=== PATIENT | male | born 1975 | race African-American/Black ===

== ENCOUNTER 2017-06-15 04:42 | Emergency (ER) | payer OTHER ==
[~2017-06-15] VITALS: Ht 190.5 cm; Wt 127.3 kg
[~2017-06-15 04:42] MED LIST: ALBU18HF2 INH; ALBU6.7H INH; ALBU8.5H8 IH; ALBU8HFA PO; BECL7.3A INH; BUDE10.2 INH; METH4TAB81 PO; PRED50TA PO
[2017-06-15] MEDS ORDERED: predniSONE 20 mg tablet PO ONE (04:55)
[2017-06-15] MEDS ORDERED: ipratropium/albuterol 3ml nebule NEB ONE (04:55)
[2017-06-15] MEDS ORDERED: PRED20TA PO (05:21)
[2017-06-15] MEDS ORDERED: ALBU8.5H8 IH (05:21)
[2017-06-15 05:40] VITALS: BP 139/95
== END 2017-06-15 05:41 | disposition home or self-care (01) ==
LOC: ER 04:42
DX: J45.901 Unspecified asthma with (acute) exacerbation (principal)
CPT/HCPCS: 94640; 94760; 99283; J7512

== ENCOUNTER 2017-07-13 03:04 | Emergency (ER) | payer OTHER ==
[~2017-07-13] VITALS: Ht 190.5 cm; Wt 130.7 kg
[~2017-07-13 03:04] MED LIST changes: +PRED20TA PO
[2017-07-13] MEDS ORDERED: ipratropium/albuterol 3ml nebule NEB PRN (03:45)
[2017-07-13] MEDS ORDERED: albuterol 2.5 MG/3 ML nebule NEB ONE (03:45)
[2017-07-13] MEDS ORDERED: dexamethasone sod phosphate 10mg/ml inj IM STA (04:31)
[2017-07-13] MEDS ORDERED: albuterol 2.5 MG/3 ML nebule CONTNEB PRN (04:35)
[2017-07-13] MEDS ORDERED: albuterol 2.5 MG/3 ML nebule NEB PRN (05:00)
[2017-07-13] MEDS ORDERED: ALBU8.5H8 INH (05:21)
[2017-07-13] MEDS ORDERED: ALB0.5UD IH (05:21)
[2017-07-13] MEDS ORDERED: PRED20TA PO (05:21)
[2017-07-13 05:43] VITALS: BP 167/94
== END 2017-07-13 05:47 | disposition home or self-care (01) ==
LOC: ER 03:05
DX: J45.901 Unspecified asthma with (acute) exacerbation (principal); Z79.899 Other long term (current) drug therapy
CPT/HCPCS: 94640; 94760; 96372; 99284; J1100

== ENCOUNTER 2018-05-27 23:43 | Emergency (ER) | payer OTHER ==
[~2018-05-27] VITALS: Ht 190.5 cm; Wt 131.8 kg
[~2018-05-27 23:43] MED LIST changes: +ALBU8.5H8 INH; -PRED20TA PO
[2018-05-27] MEDS ORDERED: albuterol 2.5 MG/3 ML nebule NEB ONE (23:45)
[2018-05-27] MEDS ORDERED: albuterol 2.5 mg/0.5ml nebule NEB ONE (23:55)
[2018-05-28] MEDS ORDERED: albuterol 2.5 MG/3 ML nebule NEB ONE
[2018-05-28] MEDS ORDERED: dexamethasone 4mg tablet PO ONE (00:15)
[2018-05-28] MEDS ORDERED: ALBU8.5H8 INH (00:16)
[2018-05-28] MEDS ORDERED: PRED20TA PO (00:16)
[2018-05-28 00:53] VITALS: BP 150/89
== END 2018-05-28 00:53 | disposition home or self-care (01) ==
LOC: ER 23:44
DX: J45.901 Unspecified asthma with (acute) exacerbation (principal); Z79.899 Other long term (current) drug therapy
CPT/HCPCS: 94640; 94760; 99284; J7611; J8540; 99283

== ENCOUNTER 2019-01-18 22:54 | Emergency (ER) | payer SELFPAY ==
[~2019-01-18] VITALS: Ht 190.5 cm; Wt 131.0 kg
[~2019-01-18 22:54] MED LIST changes: -ALBU6.7H INH; +ALBU6.7H9 INH
[2019-01-19] MEDS ORDERED: ALB0.5UD IH (00:14)
[2019-01-19] MEDS ORDERED: FLUT12AE4 IH (00:14)
[2019-01-19] MEDS ORDERED: ALBU18HF2 INH (00:14)
[2019-01-19 00:21] VITALS: BP 141/92
== END 2019-01-19 00:20 | disposition home or self-care (01) ==
LOC: ER 22:55
DX: J45.909 Unspecified asthma, uncomplicated (principal); Z79.899 Other long term (current) drug therapy
CPT/HCPCS: 99283

== ENCOUNTER 2021-01-24 00:08 | Emergency (ER) | payer OTHER ==
[~2021-01-24] VITALS: Ht 190.5 cm; Wt 136.6 kg
[~2021-01-24 00:08] MED LIST changes: +ALBU8.5H17 IH; +ALBU8.5H17 INH; -ALBU8.5H8 IH; -ALBU8.5H8 INH; +FLUT12AE4 IH
[2021-01-24 00:12] VITALS: BP 143/74
[2021-01-24] MEDS ORDERED: ipratropium/albuterol 3ml nebule NEB ONE (00:20)
[2021-01-24] MEDS ORDERED: dexamethasone 4mg tablet PO ONE (00:30)
[2021-01-24] MEDS ORDERED: FLUT1DIS15 INH (01:02)
[2021-01-24] MEDS ORDERED: PRED20TA PO (01:02)
[2021-01-24] MEDS ORDERED: ALBU18HF2 INH (01:02)
== END 2021-01-24 01:23 | disposition home or self-care (01) ==
LOC: ER 00:09
DX: J20.9 Acute bronchitis, unspecified (principal); R06.02 Shortness of breath; R05.9 Cough, unspecified; F12.90 Cannabis use, unspecified, uncomplicated; J45.909 Unspecified asthma, uncomplicated; Z79.899 Other long term (current) drug therapy
CPT/HCPCS: 71045; 93005; 94640; 94760; 99283

== ENCOUNTER 2022-02-05 12:02 | Emergency (ER) | payer OTHER ==
[~2022-02-05] VITALS: Ht 190.5 cm; Wt 136.0 kg
[~2022-02-05 12:02] MED LIST changes: +ALBU6.7H14 INH; -ALBU6.7H9 INH; +FLUT1DIS15 INH
[2022-02-05] MEDS: predniSONE 20 mg tablet PO ONE ×2 (13:05→14:19)
[2022-02-05] MEDS ORDERED: albuterol 2.5 MG/3 ML nebule CONTNEB STA (13:05)
[2022-02-05] MEDS ORDERED: ipratropium 0.5 MG/2.5ML nebule IH ONE (13:05)
[2022-02-05] MEDS ORDERED: PRED20TA PO (13:45)
[2022-02-05] MEDS ORDERED: ALBU8HFA PO (13:46)
[2022-02-05] MEDS ORDERED: predniSONE 20 mg tablet PO ONE (14:25)
[2022-02-05 14:43] VITALS: BP 141/77
== END 2022-02-05 14:45 | disposition home or self-care (01) ==
LOC: ER 12:03
DX: J45.901 Unspecified asthma with (acute) exacerbation (principal); F12.90 Cannabis use, unspecified, uncomplicated
CPT/HCPCS: 94640; 99283; J7512; 94760